=== PATIENT | male | born 1940 | race Caucasian/White ===

== ENCOUNTER 2019-05-09 23:02 | Inpatient (IN) | payer MEDICARE, MEDICAID ==
[~2019-05-09] VITALS: Ht 175.3 cm; Wt 65.9 kg
[2019-05-09 22:50] VITALS: BP 115/53
[~2019-05-09 23:02] MED LIST: ASPI-611 PO; ATEN50TA PO; FLO0.4C PO; FURO20TA4 PO; IPRA3AMP31 IH; ISOS60TA4 PO; LISI10TA4 PO
[2019-05-09] MEDS ORDERED: HYDROcodone/acetaminophen 5mg/325mg tablet PO PRN (23:10)
[2019-05-09] MEDS ORDERED: potassium CL 10mEq/100ml bag 100 ML IV PRN ×2 (23:10)
[2019-05-09] MEDS ORDERED: potassium Cl 20 mEq SR tablet PO PRN ×2 (23:10)
[2019-05-09] MEDS ORDERED: magnesium 4gm in 100ml NS 100 ML IV PRN (23:10)
[2019-05-09] MEDS ORDERED: mag hydrox/Alum hydrox/simeth 30ml oral suspension PO PRN (23:10)
[2019-05-09] MEDS ORDERED: ondansetron/PF 4mg/2ml inj IV PRN (23:10)
[2019-05-09] MEDS ORDERED: magnesium Cl slow-release 64mg tablet PO PRN (23:10)
[2019-05-09] MEDS ORDERED: magnesium 2GM in 50ml NS 50 ML IV PRN (23:10)
[2019-05-09] MEDS ORDERED: acetaminophen 325mg tablet PO PRN ×2 (23:10)
[2019-05-09] MEDS ORDERED: morphine 2 MG/ML inj. syringe IV PRN ×2 (23:10)
[2019-05-09] MEDS ORDERED: magnesium hydroxide 30ml (MOM) UD suspension PO PRN (23:10)
--- NOTE | 2019-05-10 00:09 | NUR ---
received report from Bruno GÓMEZ at [facility] at 2030. patient arrived on the gurney from the flight RNs and ambulated from the gurney to the bed. patient is stable
--- NOTE | 2019-05-10 00:22 | NUR ---
Dr. Villegas stated to add ECGs to the trops if the patient is symptomatic, currently no orders
[2019-05-10] MEDS: ipratropium/albuterol 3ml nebule NEB PRN (00:51)
[2019-05-10 02:30] VITALS: BP 103/51
[2019-05-10 02:44] LABS: HEMOGLOBIN 11.9 g/dl (14.0-17.9); MEAN PLATELET VOLUME 8.3 FL (7.4-10.4); WHITE BLOOD COUNT 7.1 X10'3 (4.5-11.0)
[2019-05-10 02:46] LABS: BASOPHILS % (AUTO) 0.2 % (0-1); EOSINOPHILS % (AUTO) 0 % (0-6); HEMATOCRIT 35.4 % (42.0-52.0); LYMPHOCYTES # (AUTO) 0.4 X10'3 (1.1-4.8); LYMPHOCYTES % (AUTO) 5.5 % (21-51); MEAN CORPUSCULAR HEMOGLOBIN 32.6 PG (27.0-31.0); MEAN CORPUSCULAR HGB CONC 33.6 g/dL (33.0-36.5); MEAN CORPUSCULAR VOLUME 97.1 FL (78-98); MONOCYTES # (AUTO) 0.1 X10'3 (0-0.9); MONOCYTES % (AUTO) 1.4 % (2-12); NEUTROPHILS # (AUTO) 6.6 X10'3 (1.8-7.7); NEUTROPHILS % (AUTO) 92.9 % (42-75); PLATELET COUNT 86 X10'3 (140-440); RED BLOOD COUNT 3.65 X10'6 (4.70-6.10); RED CELL DISTRIBUTION WIDTH 13.9 % (11.5-14.5)
[2019-05-10] MEDS ORDERED: ipratropium/albuterol 3ml nebule NEB SCH (03:00)
[2019-05-10] MEDS ORDERED: nitroGLYCERIN 0.4mg SUBLingual tab SL PRN (05:20)
[2019-05-10] MEDS ORDERED: regadenoson 0.4mg/5ml syringe IV ONE (05:20)
[2019-05-10] MEDS ORDERED: metoprolol tartrate 1mg/ml inj IV PRN (05:20)
[2019-05-10] MEDS ORDERED: aminophylline 250mg/10ml inj. IV PRN (05:20)
[2019-05-10] MEDS: enoxaparin 60mg/0.6ml syringe SUBCUT SCH ×3 (05:42→21:30)
[2019-05-10 06:00] VITALS: BP 130/72
[2019-05-10 06:01] LABS: ALBUMIN 2.6 G/DL (3.4-5.0); ANION GAP 1 (8-16); BLOOD UREA NITROGEN 32 MG/DL (7-18); BUN/CREATININE RATIO 36.8 (5.4-32.0); CALCIUM 8.4 MG/DL (8.5-10.1); CHLORIDE 103 MMOL/L (99-107); CREATININE 0.87 MG/DL (0.60-1.10); GLUCOSE 130 MG/DL (70-104); MAGNESIUM 1.9 MG/DL (1.5-2.4); POTASSIUM 5.1 MMOL/L (3.5-5.1); SODIUM 145 MMOL/L (135-145); eGFR 85 ML/MIN
[2019-05-10 06:12] LABS: TOTAL CARBON DIOXIDE 40.9 MMOL/L (24-32)
--- NOTE | 2019-05-10 06:17 | NUR ---
Patient in room PCU 3014. I have received report from Iban GÓMEZ and had the opportunity to ask questions and assume patient care.
--- NOTE | 2019-05-10 06:24 | NUR ---
Problems reprioritized. Patient report given, questions answered & plan of care reviewed with Frank GÓMEZ.
--- NOTE | 2019-05-10 06:41 | NUR ---
PAGER ID: [phone] MESSAGE: [id number] Louis Waldrop: Critical Lab of CO2 40.9, pt has COPD. Thanks Frank [phone]
--- NOTE | 2019-05-10 06:56 | NUR ---
Spoke to Dr. Villegas in regards to pt critical CO2 40.9, no new orders at this time, will continue to monitor.
[2019-05-10] MEDS: ipratropium/albuterol 3ml nebule NEB SCH ×5 (07:38→19:12)
[2019-05-10] MEDS ORDERED: lisinopril 10 MG tablet PO SCH (08:00)
[2019-05-10] MEDS ORDERED: isosorbide mononitrate 30mg tab.SR.24H PO SCH (08:00)
[2019-05-10] MEDS: K and/or MAG REPLACEMENT MC SCH (08:00)
[2019-05-10] MEDS ORDERED: nitroGLYCERIN 0.1mg/hour patch TD SCH (08:00)
[2019-05-10] MEDS ORDERED: furosemide 20MG tablet PO SCH (08:00)
[2019-05-10] MEDS: tamsulosin 0.4mg capsule PO SCH (08:20)
[2019-05-10] MEDS: predniSONE 20 mg tablet PO SCH (08:20)
[2019-05-10] MEDS: CefTRIAXone 2gm/D5W 50ml 50 ML IV SCH (08:21)
[2019-05-10] MEDS: azithromycin 250mg tablet PO SCH (08:21)
[2019-05-10] MEDS: atenolol 25mg tablet PO SCH (08:22)
[2019-05-10] MEDS ORDERED: pneumococcal 23-VAL P-sac vacc 25 mcg/0.5ml vial IMVAC ONE (10:00)
[2019-05-10] MEDS ORDERED: FLU VACC QS2019-20 36MOS UP/PF 60 MCG/0.5 ML SYRINGE IMVAC ONE (10:00)
[2019-05-10 11:00] VITALS: BP 125/61
--- NOTE | 2019-05-10 12:14 | NUR ---
Pt sent to [facility] for stress test but returns and has stress test cancelled d/t nurse was unable to auscultate lung sounds clear enough and received orders to d/c stress test from Dr. Khan, Dr. Low notified and will consult with Dr. Khan, will continue to monitor.
--- NOTE | 2019-05-10 12:17 | NUR ---
PAGER ID: [phone] MESSAGE: [id number] Louis Waldrop: Can we feed pt or should we wait until Dr. Khan consults first? Frank [phone]
[2019-05-10] MEDS ORDERED: iohexol 350MG/ML 100ml bottle IV ONE (13:19)
--- NOTE | 2019-05-10 13:47 | NUR ---
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 Dx FTT, CHF, BPH, and chronic low platelets per MD note. Pt seen by MARILIN and reports lower appetite past few weeks leading to decreased PO but has also been consciously trying to lose wt as well. Pt has no visible signs of muscle/fat wasting, no severe weakness noted, and only trace edema. Pt has been NPO for cardiac test pending PO hx this admit. At this time pt does not meet malnutrition criteria. [facility] 05/08. Will monitor for PO hx and ONS needs this admit. Rec: 1. continue heart healthy per MD 2. monitor for ONS needs pending PO hx 3. bowel care as needed 4. wt per rx Addendum: 05/10/19 at [address] Amended: Links added.
--- NOTE | 2019-05-10 14:49 | NUR ---
Paged Dr. Low about pt's CTA results are in
--- NOTE | 2019-05-10 14:52 | NUR ---
Received orders for CXR and EKG from Dr. Khan
[2019-05-10 15:00] VITALS: BP 109/64
--- NOTE | 2019-05-10 17:29 | NUR ---
Problems reprioritized. Patient report given, questions answered & plan of care reviewed with Angie GÓMEZ.
[2019-05-10 18:00] VITALS: BP 85/49
--- NOTE | 2019-05-10 18:08 | NUR ---
Problems reprioritized. Patient report given, questions answered & plan of care reviewed with Liang GÓMEZ. Patient stable at transfer of care.
--- NOTE | 2019-05-10 18:19 | NUR ---
Patient in room PCU 3014. I have received report from Angie GÓMEZ and had the opportunity to ask questions and assume patient care.
[2019-05-10] MEDS: lactobacillus rhamnosus 10,000 MMU CELLS/CAPSULE PO SCH (20:50)
--- NOTE | 2019-05-10 21:08 | NUR ---
Patient having some chest pressure x2. ECGs were obtained, Bakari aware, possible ST depression/T wave inversion. Bakari to put in orders
--- NOTE | 2019-05-10 21:11 | NUR ---
Bakari aware of the platelet count, ordered to give the lovenox
[2019-05-10 22:00] VITALS: BP 105/65
[2019-05-11 02:00] VITALS: BP 101/54
[2019-05-11 03:39] LABS: BASOPHILS % (AUTO) 0.1 % (0-1); EOSINOPHILS % (AUTO) 0 % (0-6); HEMATOCRIT 34.5 % (42.0-52.0); HEMOGLOBIN 11.5 g/dl (14.0-17.9); LYMPHOCYTES # (AUTO) 0.6 X10'3 (1.1-4.8); LYMPHOCYTES % (AUTO) 12.5 % (21-51); MEAN CORPUSCULAR HEMOGLOBIN 32.4 PG (27.0-31.0); MEAN CORPUSCULAR HGB CONC 33.2 g/dL (33.0-36.5); MEAN CORPUSCULAR VOLUME 97.6 FL (78-98); MEAN PLATELET VOLUME 8.2 FL (7.4-10.4); MONOCYTES # (AUTO) 0.5 X10'3 (0-0.9); MONOCYTES % (AUTO) 8.9 % (2-12); NEUTROPHILS # (AUTO) 4.1 X10'3 (1.8-7.7); NEUTROPHILS % (AUTO) 78.5 % (42-75); PLATELET COUNT 73 X10'3 (140-440); RED BLOOD COUNT 3.54 X10'6 (4.70-6.10); WHITE BLOOD COUNT 5.2 X10'3 (4.5-11.0)
[2019-05-11 03:57] LABS: ALBUMIN 2.5 G/DL (3.4-5.0); ANION GAP -2 (8-16); BLOOD UREA NITROGEN 27 MG/DL (7-18); BUN/CREATININE RATIO 32.5 (5.4-32.0); CALCIUM 8.1 MG/DL (8.5-10.1); CHLORIDE 102 MMOL/L (99-107); CREATININE 0.83 MG/DL (0.60-1.10); GLUCOSE 95 MG/DL (70-104); POTASSIUM 4.3 MMOL/L (3.5-5.1); SODIUM 144 MMOL/L (135-145); eGFR 89 ML/MIN
[2019-05-11 03:58] LABS: TOTAL CARBON DIOXIDE 43.7 MMOL/L (24-32)
--- NOTE | 2019-05-11 04:14 | NUR ---
Page Sent promotional table spacer PAGER ID: [phone] MESSAGE: [id number] Louis Waldrop that direct admit from 2 nights ago here for unstable angina had a critical CO2 of 43.7. Iban Rosales04
[2019-05-11 06:00] VITALS: BP 129/84
--- NOTE | 2019-05-11 06:00 | NUR ---
Patient in room PCU 3014. I have received report from Iban GÓMEZ and had the opportunity to ask questions and assume patient care.
--- NOTE | 2019-05-11 06:28 | NUR ---
Problems reprioritized. Patient report given, questions answered & plan of care reviewed with Dina GÓMEZ.
[2019-05-11] MEDS: ipratropium/albuterol 3ml nebule NEB SCH ×4 (06:59→18:34)
[2019-05-11] MEDS: lactobacillus rhamnosus 10,000 MMU CELLS/CAPSULE PO SCH ×2 (07:34→21:22)
[2019-05-11] MEDS: tamsulosin 0.4mg capsule PO SCH (07:37)
[2019-05-11] MEDS: predniSONE 20 mg tablet PO SCH (07:37)
[2019-05-11] MEDS: azithromycin 250mg tablet PO SCH (07:38)
[2019-05-11] MEDS: CefTRIAXone 2gm/D5W 50ml 50 ML IV SCH (07:38)
--- NOTE | 2019-05-11 07:57 | NUR ---
Multiple medications held d/t low BP and HR. notified PAGER ID: [phone] MESSAGE: [id number], Jacinda Waldrop. BP 89/56 HR 66. Rechecked 90/49, 61. Held Imdur, Lasix, Nitro patch, Lisinopril, and atenolol. Just FYI! Luba [facility] [id number]
[2019-05-11] MEDS: atenolol 25mg tablet PO SCH (08:00)
[2019-05-11] MEDS: K and/or MAG REPLACEMENT MC SCH (08:00)
[2019-05-11 11:00] VITALS: BP 106/56
[2019-05-11 15:00] VITALS: BP 118/62
--- NOTE | 2019-05-11 16:57 | NUR ---
Paged regarding changes to discharge PAGER ID: [phone] MESSAGE: [phone] Derik Waldrop Per case management, patient daughter is ill. 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 Otoniel Verduzco [phone]
[2019-05-11 18:00] VITALS: BP 168/92
--- NOTE | 2019-05-11 18:30 | NUR ---
Problems reprioritized. Patient report given, questions answered & plan of care reviewed with Maria M GÓMEZ.
[2019-05-11] MEDS: furosemide 20 MG/2 ML vial IV SCH (21:22)
[2019-05-11] MEDS: ipratropium/albuterol 3ml nebule NEB PRN (22:44)
--- NOTE | 2019-05-11 22:56 | NUR ---
PAGER ID: [phone] MESSAGE: Wil Amin, pt Louis Waldrop [id number] HR is 126-130s around 2230, SOB, having breathing treatment right now, lung sound is diminished. Thanks, Maria M [phone]
[2019-05-11 23:00] VITALS: BP 134/80
[2019-05-11] MEDS ORDERED: furosemide 20 MG/2 ML vial IV ONE (23:25)
--- NOTE | 2019-05-11 23:29 | NUR ---
Dr. Villegas gave order of once time 20mg laxis, chest xray, and bladder scan after lasix, will continue to monitor
[2019-05-12 03:00] VITALS: BP 119/60
[2019-05-12] MEDS: ipratropium/albuterol 3ml nebule NEB PRN (04:24)
[2019-05-12 05:26] LABS: BASOPHILS % (AUTO) 0.2 % (0-1); EOSINOPHILS % (AUTO) 0.2 % (0-6); HEMATOCRIT 45.8 % (42.0-52.0); LYMPHOCYTES % (AUTO) 17.6 % (21-51); MEAN CORPUSCULAR HEMOGLOBIN 32.1 PG (27.0-31.0); MEAN CORPUSCULAR HGB CONC 32.7 g/dL (33.0-36.5); MEAN CORPUSCULAR VOLUME 98.1 FL (78-98); MEAN PLATELET VOLUME 7.9 FL (7.4-10.4); MONOCYTES # (AUTO) 0.5 X10'3 (0-0.9); MONOCYTES % (AUTO) 9.2 % (2-12); NEUTROPHILS # (AUTO) 4.3 X10'3 (1.8-7.7); NEUTROPHILS % (AUTO) 72.8 % (42-75); PLATELET COUNT 92 X10'3 (140-440); RED BLOOD COUNT 4.67 X10'6 (4.70-6.10); RED CELL DISTRIBUTION WIDTH 14.1 % (11.5-14.5); WHITE BLOOD COUNT 5.9 X10'3 (4.5-11.0)
[2019-05-12 05:29] LABS: ALBUMIN 3.4 G/DL (3.4-5.0); BLOOD UREA NITROGEN 27 MG/DL (7-18); BUN/CREATININE RATIO 28.4 (5.4-32.0); CALCIUM 8.4 MG/DL (8.5-10.1); CHLORIDE 100 MMOL/L (99-107); CHOL/HDL RATIO 3.3 (0.00-4.99); CHOLESTEROL 195 MG/DL (0-200); CREATININE 0.95 MG/DL (0.60-1.10); GLUCOSE 98 MG/DL (70-104); HDL CHOLESTEROL 60 MG/DL (35-60); LDL CHOLESTEROL 110 MG/DL (50-100); POTASSIUM 4.5 MMOL/L (3.5-5.1); SODIUM 145 MMOL/L (135-145); TRIGLYCERIDES 122 MG/DL (20-135); eGFR 76 ML/MIN
[2019-05-12 05:41] LABS: ANION GAP -4 (8-16)
[2019-05-12 05:44] LABS: TOTAL CARBON DIOXIDE 48.5 MMOL/L (24-32)
--- NOTE | 2019-05-12 05:54 | NUR ---
PAGER ID: [phone] MESSAGE: pt Benjie balderas, 3014A has a critical value of CO2 48.5, yesterday pt CO2 was 43.7, thanks Maria M [phone]!
--- NOTE | 2019-05-12 05:59 | NUR ---
pt got up to use the uniral and had another episode of SOB and desating on the 80s, Hr on 130s. Notified RT and pt is recovering slowly with breathing treatment, rt recommended to hydrogenated prior pt when he use the urinal
[2019-05-12 06:00] VITALS: BP 120/69
--- NOTE | 2019-05-12 06:00 | NUR ---
Patient in room PCU 3014. I have received report from Maria M GÓMEZ and had the opportunity to ask questions and assume patient care.
--- NOTE | 2019-05-12 06:30 | NUR ---
Problems reprioritized. Patient report given, questions answered & plan of care reviewed with Dina Caldwell.
[2019-05-12] MEDS: ipratropium/albuterol 3ml nebule NEB SCH ×5 (06:57→23:26)
[2019-05-12] MEDS: CefTRIAXone 2gm/D5W 50ml 50 ML IV SCH (07:19)
[2019-05-12] MEDS: furosemide 20 MG/2 ML vial IV SCH ×2 (07:19→19:56)
[2019-05-12] MEDS: azithromycin 250mg tablet PO SCH (07:20)
[2019-05-12] MEDS: isosorbide mononitrate 30mg tab.SR.24H PO SCH (07:20)
[2019-05-12] MEDS: lactobacillus rhamnosus 10,000 MMU CELLS/CAPSULE PO SCH ×2 (07:20→19:56)
[2019-05-12] MEDS: enoxaparin 40mg/0.4ml syringe SUBCUT SCH (07:20)
[2019-05-12] MEDS: predniSONE 20 mg tablet PO SCH (07:21)
[2019-05-12] MEDS: tamsulosin 0.4mg capsule PO SCH (07:21)
[2019-05-12] MEDS: atenolol 25mg tablet PO SCH (07:21)
[2019-05-12] MEDS: K and/or MAG REPLACEMENT MC SCH (08:00)
[2019-05-12 09:20] LABS: ABG BASE EXCESS 21.6 mmol/L (-2.0-3.0); ABG HCO3 55.6 mmol/L (22.0-26.0); ABG OXYGEN SATURATION 97.3 % (95-98); ABG PCO2 (T) 122.8 mmHg (35.0-45.0); ABG PH (T) 7.274 (7.350-7.450); ABG PO2 (T) 102.2 mmHg (83-108); ALLEN'S TEST Positive; FCOHb 0.6 % (0.5-1.5); FLOW 3 L/min; FMetHb 0.2 % (0.3-1.12); FO2Hb 96.5 % (94-100); RESPIRATORY RATE (OBSERVED) 20 b/min; TOTAL HEMOGLOBIN 14.7 G/dl (14.0-17.9)
[2019-05-12 11:00] VITALS: BP 127/73
[2019-05-12 11:10] LABS: ABG BASE EXCESS 17.3 mmol/L (-2.0-3.0); ABG HCO3 49.4 mmol/L (22.0-26.0); ABG OXYGEN SATURATION 92.4 % (95-98); ABG PCO2 (T) 99.4 mmHg (35.0-45.0); ABG PH (T) 7.314 (7.350-7.450); ALLEN'S TEST Positive; FCOHb 0.6 % (0.5-1.5); FMetHb 0.2 % (0.3-1.12); FO2Hb 91.7 % (94-100); RESPIRATORY RATE 10 b/min; RESPIRATORY RATE (OBSERVED) 40 b/min; TOTAL HEMOGLOBIN 15.3 G/dl (14.0-17.9)
[2019-05-12 15:00] VITALS: BP 116/67
--- NOTE | 2019-05-12 18:15 | NUR ---
Patient in room PCU 3014. I have received report from Dina GÓMEZ and had the opportunity to ask questions and assume patient care. Consulted with patient and RT on usage of bipap. Will keep patient on NC for now, he is saturating well. Use Bi-Pap PRN.
--- NOTE | 2019-05-12 18:42 | NUR ---
Problems reprioritized. Patient report given, questions answered & plan of care reviewed with Ayah GÓMEZ.
[2019-05-12 19:00] VITALS: BP 105/57
[2019-05-12 23:00] VITALS: BP 114/65
[2019-05-13 03:00] VITALS: BP 101/59
[2019-05-13] MEDS: ipratropium/albuterol 3ml nebule NEB PRN ×3 (03:25→22:58)
[2019-05-13 05:31] LABS: BASOPHILS % (AUTO) 0 % (0-1); EOSINOPHILS % (AUTO) 0.9 % (0-6); HEMATOCRIT 41.8 % (42.0-52.0); HEMOGLOBIN 13.9 g/dl (14.0-17.9); LYMPHOCYTES # (AUTO) 0.5 X10'3 (1.1-4.8); LYMPHOCYTES % (AUTO) 14.4 % (21-51); MEAN CORPUSCULAR HEMOGLOBIN 32.3 PG (27.0-31.0); MEAN CORPUSCULAR HGB CONC 33.2 g/dL (33.0-36.5); MEAN CORPUSCULAR VOLUME 97.2 FL (78-98); MEAN PLATELET VOLUME 7.8 FL (7.4-10.4); MONOCYTES # (AUTO) 0.4 X10'3 (0-0.9); MONOCYTES % (AUTO) 11.3 % (2-12); NEUTROPHILS # (AUTO) 2.5 X10'3 (1.8-7.7); NEUTROPHILS % (AUTO) 73.4 % (42-75); PLATELET COUNT 77 X10'3 (140-440); RED CELL DISTRIBUTION WIDTH 13.7 % (11.5-14.5); WHITE BLOOD COUNT 3.4 X10'3 (4.5-11.0)
[2019-05-13 05:46] LABS: BLOOD UREA NITROGEN 33 MG/DL (7-18); BUN/CREATININE RATIO 35.9 (5.4-32.0); CALCIUM 8.5 MG/DL (8.5-10.1); CHLORIDE 102 MMOL/L (99-107); CREATININE 0.92 MG/DL (0.60-1.10); GLUCOSE 92 MG/DL (70-104); MAGNESIUM 2.2 MG/DL (1.5-2.4); POTASSIUM 4.9 MMOL/L (3.5-5.1); SODIUM 146 MMOL/L (135-145); eGFR 79 ML/MIN
[2019-05-13 06:00] VITALS: BP 101/86
--- NOTE | 2019-05-13 06:00 | NUR ---
Patient slid off the side of his bed while urinating. He fell to the floor on his left side but his head and upper body stayed upright. No injury was involved in the fall. Vitals taken and within normal range.
[2019-05-13 06:12] LABS: ANION GAP -6 (8-16); TOTAL CARBON DIOXIDE 49.6 MMOL/L (24-32)
--- NOTE | 2019-05-13 06:15 | NUR ---
Problems reprioritized. Patient report given, questions answered & plan of care reviewed with Dina GÓMEZ.
--- NOTE | 2019-05-13 06:54 | NUR ---
Paged Dr. Villegas PAGER ID: [phone] MESSAGE: Ayah [facility] #[phone], Louis Waldrop [id number]. Patient has a critical C02 of 49.6- trending up from yesterday (48.5). Patient also fell this morning - slid off the side of the bed while urinating - no injury
[2019-05-13] MEDS: ipratropium/albuterol 3ml nebule NEB SCH ×4 (07:48→18:53)
[2019-05-13] MEDS: K and/or MAG REPLACEMENT MC SCH (08:00)
[2019-05-13] MEDS: enoxaparin 40mg/0.4ml syringe SUBCUT SCH (08:00)
[2019-05-13] MEDS: furosemide 20 MG/2 ML vial IV SCH ×2 (09:01→19:20)
[2019-05-13] MEDS: CefTRIAXone 2gm/D5W 50ml 50 ML IV SCH (09:01)
[2019-05-13] MEDS: atenolol 25mg tablet PO SCH (09:02)
[2019-05-13] MEDS: tamsulosin 0.4mg capsule PO SCH (09:02)
[2019-05-13] MEDS: lactobacillus rhamnosus 10,000 MMU CELLS/CAPSULE PO SCH ×2 (09:02→19:20)
[2019-05-13] MEDS: predniSONE 20 mg tablet PO SCH (09:02)
[2019-05-13] MEDS: isosorbide mononitrate 30mg tab.SR.24H PO SCH (09:02)
[2019-05-13] MEDS: azithromycin 250mg tablet PO SCH (09:02)
--- NOTE | 2019-05-13 09:24 | NUR ---
Paged RT regarding STAT ABG. Awaiting arrival to unit/response.
[2019-05-13 09:46] LABS: ABG BASE EXCESS 16.5 mmol/L (-2.0-3.0); ABG HCO3 49.2 mmol/L (22.0-26.0); ABG OXYGEN SATURATION 94.6 % (95-98); ABG PCO2 (T) 105.5 mmHg (35.0-45.0); ABG PH (T) 7.287 (7.350-7.450); ABG PO2 (T) 75.8 mmHg (83-108); ALLEN'S TEST Positive; FCOHb 0.7 % (0.5-1.5); FLOW 3 L/min; FMetHb 0.2 % (0.3-1.12); FO2Hb 93.7 % (94-100); TOTAL HEMOGLOBIN 15.4 G/dl (14.0-17.9)
[2019-05-13] MEDS ORDERED: morphine 2 MG/ML inj. syringe IV PRN (10:15)
[2019-05-13 11:00] VITALS: BP 85/50
[2019-05-13 15:00] VITALS: BP 97/59
[2019-05-13 18:00] VITALS: BP 102/62
--- NOTE | 2019-05-13 19:00 | NUR ---
Patient in room PCU 3014A. I have received report from RICO Arroyo and had the opportunity to ask questions and assume patient care. Patient denies CP, n/v, dizziness, and rated pain 0/10. Presently, he is on BIPAP and his latest CO2 105.5
--- NOTE | 2019-05-13 19:00 | NUR ---
Problems reprioritized. Patient report given, questions answered & plan of care reviewed with Herber GÓMEZ.
[2019-05-13 22:00] VITALS: BP 100/73
[2019-05-14 02:00] VITALS: BP 105/66
[2019-05-14] MEDS: ipratropium/albuterol 3ml nebule NEB PRN ×2 (03:14→23:16)
[2019-05-14 06:00] VITALS: BP 110/53
[2019-05-14 06:25] LABS: ALBUMIN 2.8 G/DL (3.4-5.0); ANION GAP -5 (8-16); BLOOD UREA NITROGEN 34 MG/DL (7-18); BUN/CREATININE RATIO 42.5 (5.4-32.0); CALCIUM 8.3 MG/DL (8.5-10.1); CHLORIDE 100 MMOL/L (99-107); GLUCOSE 88 MG/DL (70-104); POTASSIUM 4.6 MMOL/L (3.5-5.1); SODIUM 145 MMOL/L (135-145); eGFR > 90 ML/MIN
[2019-05-14 06:28] LABS: TOTAL CARBON DIOXIDE > 50 MMOL/L (24-32)
--- NOTE | 2019-05-14 06:29 | NUR ---
Problems reprioritized. Patient report given, questions answered & plan of care reviewed with RICO Adams.
--- NOTE | 2019-05-14 06:31 | NUR ---
Patient in room PCU 3014. I have received report from RICO Craven and had the opportunity to ask questions and assume patient care.
--- NOTE | 2019-05-14 06:31 | NUR ---
Paged Devante regarding CO2 critical value PAGER ID: [phone] MESSAGE: [phone] Benjie: Critical value CO2 > 50. Julia [phone]
[2019-05-14 06:49] LABS: BASOPHILS % (AUTO) 0.1 % (0-1); EOSINOPHILS # (AUTO) 0.1 X10'3 (0-0.9); EOSINOPHILS % (AUTO) 1.7 % (0-6); HEMATOCRIT 37.7 % (42.0-52.0); HEMOGLOBIN 12.7 g/dl (14.0-17.9); LYMPHOCYTES # (AUTO) 0.6 X10'3 (1.1-4.8); LYMPHOCYTES % (AUTO) 17.7 % (21-51); MEAN CORPUSCULAR HEMOGLOBIN 32.6 PG (27.0-31.0); MEAN CORPUSCULAR HGB CONC 33.7 g/dL (33.0-36.5); MEAN CORPUSCULAR VOLUME 96.5 FL (78-98); MEAN PLATELET VOLUME 7.9 FL (7.4-10.4); MONOCYTES # (AUTO) 0.5 X10'3 (0-0.9); MONOCYTES % (AUTO) 12.7 % (2-12); NEUTROPHILS # (AUTO) 2.5 X10'3 (1.8-7.7); NEUTROPHILS % (AUTO) 67.8 % (42-75); PLATELET COUNT 79 X10'3 (140-440); RED CELL DISTRIBUTION WIDTH 13.2 % (11.5-14.5); WHITE BLOOD COUNT 3.7 X10'3 (4.5-11.0)
[2019-05-14] MEDS: ipratropium/albuterol 3ml nebule NEB SCH ×4 (07:07→18:59)
[2019-05-14] MEDS: K and/or MAG REPLACEMENT MC SCH (08:00)
[2019-05-14] MEDS: furosemide 20 MG/2 ML vial IV SCH ×2 (09:41→20:08)
[2019-05-14] MEDS: lactobacillus rhamnosus 10,000 MMU CELLS/CAPSULE PO SCH ×2 (09:42→20:08)
[2019-05-14] MEDS: isosorbide mononitrate 30mg tab.SR.24H PO SCH (09:42)
[2019-05-14] MEDS: tamsulosin 0.4mg capsule PO SCH (09:42)
[2019-05-14] MEDS: atenolol 25mg tablet PO SCH (09:43)
[2019-05-14] MEDS: predniSONE 20 mg tablet PO SCH (09:43)
[2019-05-14] MEDS ORDERED: LORazepam 2 mg/ml vial IV PRN (10:00)
[2019-05-14 11:00] VITALS: BP 128/80
--- NOTE | 2019-05-14 14:43 | NUR ---
reassessment: Pt PO 75% avg slight decrease from 100% previous; still meeting needs. Noted to be very SOB on minimal exertion at this time per MD note. [facility] 05/10; pt has MoM PRN but not given at this time. PO likely r/t DX and constipation. Pt would benefit from routine bowel care per MD approval. Will continue to monitor. Rec: 1. continue heart healthy per MD 2. routine bowel care 3. wt per rx Addendum: 05/14/19 at [address] Amended: Links added.
[2019-05-14 15:00] VITALS: BP 94/65
[2019-05-14 16:41] LABS: ABG BASE EXCESS 16.8 mmol/L (-2.0-3.0); ABG HCO3 47.6 mmol/L (22.0-26.0); ABG OXYGEN SATURATION 97.3 % (95-98); ABG PCO2 (T) 89.7 mmHg (35.0-45.0); ABG PH (T) 7.343 (7.350-7.450); ABG PO2 (T) 94.5 mmHg (83-108); ALLEN'S TEST Positive; FCOHb 0.9 % (0.5-1.5); FMetHb 0.2 % (0.3-1.12); FO2Hb 96.2 % (94-100); RESPIRATORY RATE 10 b/min; TOTAL HEMOGLOBIN 14.7 G/dl (14.0-17.9)
[2019-05-14] MEDS: CefTRIAXone 2gm/D5W 50ml 50 ML IV SCH (17:42)
--- NOTE | 2019-05-14 18:13 | NUR ---
Patient in room [facility] 3014. I have received report from Angie More RN and RICO Meyer and had the opportunity to ask questions and assume patient care. Addendum: 05/14/19 at 1847 by Irene Shi RN Report from Angie More RN and RICO Dumont
--- NOTE | 2019-05-14 18:16 | NUR ---
Problems reprioritized. Patient report given, questions answered & plan of care reviewed with Tammy GÓMEZ. Patient stable at transfer of care, and on Bipap.
--- NOTE | 2019-05-14 18:16 | NUR ---
[place] documentation: I have reviewed and agree with interventions, assessments performed and documented by Julia. [facility] Medication Administration: For this medication-pass time frame, medication were reviewed, dispensed, administered and documented per hospital policy by Julia Caldwell.
--- NOTE | 2019-05-14 18:42 | NUR ---
Patient in room PCU 3014. I have received report from Angie GÓMEZ and Julia GÓMEZ and had the opportunity to ask questions and assume patient care.
[2019-05-14 19:00] VITALS: BP 119/59
[2019-05-14 22:02] VITALS: BP 105/64
[2019-05-15 01:50] VITALS: BP 93/54
[2019-05-15] MEDS: ipratropium/albuterol 3ml nebule NEB PRN (03:04)
--- NOTE | 2019-05-15 06:05 | NUR ---
Problems reprioritized. Patient report given, questions answered & plan of care reviewed with Angie More RN and RICO Dumont.
--- NOTE | 2019-05-15 06:08 | NUR ---
Patient in room PCU 3014. I have received report from RICO Benavides and had the opportunity to ask questions and assume patient care.
--- NOTE | 2019-05-15 06:15 | NUR ---
Problems reprioritized. Patient report given, questions answered & plan of care reviewed with Julia GÓMEZ and Angie GÓMEZ.
--- NOTE | 2019-05-15 06:16 | NUR ---
Orientee documentation: I have reviewed and agree with all interventions, assessments performed and documented by RICO Chavez.
[2019-05-15 06:21] LABS: MAGNESIUM 2.1 MG/DL (1.5-2.4)
[2019-05-15 07:00] VITALS: BP_SYST 106; BP_DIAS 54; BP_DIAS 66
--- NOTE | 2019-05-15 07:13 | NUR ---
Patient is receiving ABX and has had low platelets this indicates the need for CBC lab ordered for this morning
[2019-05-15 07:15] LABS: ALANINE AMINOTRANSFERASE 19 U/L (12-78); ALBUMIN 2.7 G/DL (3.4-5.0); ALBUMIN/GLOBULIN RATIO 0.8 (1.1-1.5); ALKALINE PHOSPHATASE 39 IU/L (46-116); ASPARTATE AMINO TRANSFERASE 19 U/L (10-37); BILIRUBIN,TOTAL 0.5 MG/DL (0.1-1.0); BLOOD UREA NITROGEN 38 MG/DL (7-18); BUN/CREATININE RATIO 44.2 (5.4-32.0); CALCIUM 9.2 MG/DL (8.5-10.1); CHLORIDE 96 MMOL/L (99-107); CREATININE 0.86 MG/DL (0.60-1.10); GLUCOSE 89 MG/DL (70-104); POTASSIUM 4.2 MMOL/L (3.5-5.1); SODIUM 142 MMOL/L (135-145); eGFR 86 ML/MIN
[2019-05-15] MEDS: ipratropium/albuterol 3ml nebule NEB SCH ×3 (07:18→14:30)
[2019-05-15 07:45] LABS: ANION GAP 1 (8-16)
--- NOTE | 2019-05-15 07:56 | NUR ---
PAGER ID: [phone] MESSAGE: Chema 3014ABenjie. Critical CO2 of 45.0 trending down from yesterday. Angie [phone]
[2019-05-15] MEDS: K and/or MAG REPLACEMENT MC SCH (08:00)
[2019-05-15 08:11] LABS: BASOPHILS % (AUTO) 0.2 % (0-1); EOSINOPHILS # (AUTO) 0.1 X10'3 (0-0.9); EOSINOPHILS % (AUTO) 1.6 % (0-6); HEMATOCRIT 41.6 % (42.0-52.0); HEMOGLOBIN 13.9 g/dl (14.0-17.9); LYMPHOCYTES # (AUTO) 1.1 X10'3 (1.1-4.8); MEAN CORPUSCULAR HEMOGLOBIN 32.5 PG (27.0-31.0); MEAN CORPUSCULAR HGB CONC 33.5 g/dL (33.0-36.5); MEAN CORPUSCULAR VOLUME 96.9 FL (78-98); MEAN PLATELET VOLUME 8.2 FL (7.4-10.4); MONOCYTES # (AUTO) 0.6 X10'3 (0-0.9); MONOCYTES % (AUTO) 12.1 % (2-12); NEUTROPHILS # (AUTO) 3.3 X10'3 (1.8-7.7); NEUTROPHILS % (AUTO) 64.1 % (42-75); PLATELET COUNT 81 X10'3 (140-440); RED BLOOD COUNT 4.29 X10'6 (4.70-6.10); RED CELL DISTRIBUTION WIDTH 13.7 % (11.5-14.5); WHITE BLOOD COUNT 5.1 X10'3 (4.5-11.0)
--- NOTE | 2019-05-15 09:03 | NUR ---
Rm [id number], Benjie. Bipap is beeping. Please come assess. Thank you.
[2019-05-15] MEDS: lactobacillus rhamnosus 10,000 MMU CELLS/CAPSULE PO SCH (10:22)
[2019-05-15] MEDS: tamsulosin 0.4mg capsule PO SCH (10:22)
[2019-05-15] MEDS: atenolol 25mg tablet PO SCH (10:23)
[2019-05-15] MEDS: isosorbide mononitrate 30mg tab.SR.24H PO SCH (10:23)
[2019-05-15] MEDS: predniSONE 20 mg tablet PO SCH (10:23)
[2019-05-15] MEDS: furosemide 20 MG/2 ML vial IV SCH (10:24)
[2019-05-15 11:00] VITALS: BP 130/69
[2019-05-15] MEDS: CefTRIAXone 2gm/D5W 50ml 50 ML IV SCH (12:00)
[2019-05-15 14:01] LABS: ABG BASE EXCESS 15.5 mmol/L (-2.0-3.0); ABG HCO3 46.6 mmol/L (22.0-26.0); ABG OXYGEN SATURATION 96.9 % (95-98); ABG PCO2 (T) 93.2 mmHg (35.0-45.0); ABG PH (T) 7.317 (7.350-7.450); ABG PO2 (T) 92.4 mmHg (83-108); ALLEN'S TEST Positive; FMetHb 0.2 % (0.3-1.12); FO2Hb 95.7 % (94-100); RESPIRATORY RATE 10 b/min; TOTAL HEMOGLOBIN 14.4 G/dl (14.0-17.9)
--- NOTE | 2019-05-15 14:31 | NUR ---
Gave full report to RICO Boss at [facility] in [place]. Receiving nurse had the opportunity to ask questions regarding patient and his care.
--- NOTE | 2019-05-15 15:51 | NUR ---
Patient transferred at 1500 by [facility] to [facility]. Patient PIV was removed, telemetry d/c'd. Patient packet was given to AMS personnel. Patient taken by karly. Belongings were taken over by Mary due to being left by AMS personnel after patient was taken.
== END 2019-05-15 15:00 | DRG 280 ==
LOC: PCU 3S 23:02
PROVIDERS: ADMIT Internal Medicine Interventional Cardiology; ATTEND Family Medicine
PROC: B32T1ZZ Computerized Tomography (CT Scan) of Left Pulmonary Artery using Low Osmolar Contrast (ICD-10-PCS; 2019-05-10)
PROC: B3201ZZ Computerized Tomography (CT Scan) of Thoracic Aorta using Low Osmolar Contrast (ICD-10-PCS; 2019-05-10)
PROC: B32S1ZZ Computerized Tomography (CT Scan) of Right Pulmonary Artery using Low Osmolar Contrast (ICD-10-PCS; 2019-05-10)
PROC: 4A02XM4 Measurement of Cardiac Total Activity, External Approach (ICD-10-PCS; 2019-05-10)
PROC: 3E033HZ Introduction of Radioactive Substance into Peripheral Vein, Percutaneous Approach (ICD-10-PCS; 2019-05-10)
PROC: 5A09357 Assistance with Respiratory Ventilation, Less than 24 Consecutive Hours, Continuous Positive Airway Pressure (ICD-10-PCS; principal; 2019-05-12)
PROC: 5A09357 Assistance with Respiratory Ventilation, Less than 24 Consecutive Hours, Continuous Positive Airway Pressure (ICD-10-PCS; 2019-05-13)
PROC: 5A09357 Assistance with Respiratory Ventilation, Less than 24 Consecutive Hours, Continuous Positive Airway Pressure (ICD-10-PCS; 2019-05-14)
DX: I11.0 Hypertensive heart disease with heart failure (principal); I21.A1 Myocardial infarction type 2; J18.9 Pneumonia, unspecified organism; J96.21 Acute and chronic respiratory failure with hypoxia; J96.22 Acute and chronic respiratory failure with hypercapnia; J44.1 Chronic obstructive pulmonary disease with (acute) exacerbation; J44.0 Chronic obstructive pulmonary disease with (acute) lower respiratory infection; I50.813 Acute on chronic right heart failure; R62.7 Adult failure to thrive; I50.33 Acute on chronic diastolic (congestive) heart failure; D69.6 Thrombocytopenia, unspecified; I25.10 Atherosclerotic heart disease of native coronary artery without angina pectoris; I27.81 Cor pulmonale (chronic); I27.29 Other secondary pulmonary hypertension; J20.9 Acute bronchitis, unspecified; N40.0 Benign prostatic hyperplasia without lower urinary tract symptoms; Z91.19 Patient's noncompliance with other medical treatment and regimen; Z88.8 Allergy status to other drugs, medicaments and biological substances; Z98.61 Coronary angioplasty status; Z99.81 Dependence on supplemental oxygen; Z68.21 Body mass index [BMI] 21.0-21.9, adult
CPT/HCPCS: 36415; 36600; 71045; 71275; 78451; 80048; 80053; 80061; 82803; 83735; 83880; 84145; 84484; 85018; 85025; 87040; 87081; 93005; 93306; 94640; 94660; 94760; A9500; G0378; J0696; J1650; J1940; J2270; J7512; Q2037; Q9967

== ENCOUNTER 2019-05-31 08:43 | Outpatient (CLI) | payer OTHER, MEDICAID ==
[~2019-05-31 08:43] MED LIST changes: +iohexol 300mg/ml 100ml inj. ONE
== END 2019-05-31 23:59 | disposition home or self-care (01) ==
LOC: 64 CT 08:43
PROVIDERS: ATTEND Internal Medicine
DX: J43.2 Centrilobular emphysema (principal); R04.2 Hemoptysis; R91.8 Other nonspecific abnormal finding of lung field; K44.9 Diaphragmatic hernia without obstruction or gangrene; N28.1 Cyst of kidney, acquired; I10 Essential (primary) hypertension
CPT/HCPCS: 71260; Q9967

== ENCOUNTER 2019-06-20 09:47 | Outpatient (CLI) | payer OTHER ==
[~2019-06-20 09:47] MED LIST changes: -iohexol 300mg/ml 100ml inj. ONE
[2019-06-20] MEDS ORDERED: iohexol 350MG/ML 100ml bottle IV ONE (09:48)
== END 2019-06-20 23:59 | disposition home or self-care (01) ==
LOC: 64 CT 09:47
PROVIDERS: ATTEND Internal Medicine
DX: J96.20 Acute and chronic respiratory failure, unspecified whether with hypoxia or hypercapnia (principal); J43.9 Emphysema, unspecified; J84.10 Pulmonary fibrosis, unspecified; R91.1 Solitary pulmonary nodule; R91.8 Other nonspecific abnormal finding of lung field; J98.4 Other disorders of lung; J98.11 Atelectasis; K44.9 Diaphragmatic hernia without obstruction or gangrene; N28.1 Cyst of kidney, acquired; K76.89 Other specified diseases of liver
CPT/HCPCS: 71260; Q9967